=== PATIENT | female | born 1940 | race Caucasian/White ===

== ENCOUNTER 2023-07-12 08:36 | Outpatient (CLI) | payer MEDICARE | END 2023-07-12 08:37 | disposition home or self-care (01) | LOC: RAD 08:36 | PROVIDERS: ATTEND Family Medicine | DX: M54.6 Pain in thoracic spine (principal); M47.814 Spondylosis without myelopathy or radiculopathy, thoracic region; M46.04 Spinal enthesopathy, thoracic region | CPT/HCPCS: 72072 ==